=== PATIENT | female | born 1960 | race African-American/Black ===

== ENCOUNTER 2024-12-31 10:25 | Inpatient (IN) | payer MEDICARE, MEDICAID ==
[2024-12-31] VITALS (12 sets, daily range): BP systolic 96–117; BP diastolic 57–74; TEMP 98.1–99.3; O2SAT 95–96
[~2024-12-31] VITALS: Ht 160 cm; Wt 86.2 kg
[2024-12-31] MEDS ORDERED: OMEPRAZOLE (10:31)
[2024-12-31] MEDS ORDERED: [UNRECOGNIZED DRUG - REMARK] (10:31)
[2024-12-31] MEDS ORDERED: AMLODIPINE (10:31)
[2024-12-31 11:55] LABS: CREATININE 0.7 mg/dL (0.6-1.3); SODIUM SERUM 139 mmol/L (136-145); UREA NITROGEN, BLOOD 22 mg/dL (7-18)
[2024-12-31 12:01] LABS: ASPARTATE AMINOTRANSFERASE 16 U/L (15-37); TOTAL PROTEIN, SERUM 6.4 g/dL (6.4-8.2)
[2024-12-31 12:05] LABS: PLATELET COUNT (AUTO) 396 K/uL (179-408); RED CELL DISTRIBUTION WIDTH 15.9 % (12.3-17.7); WHITE BLOOD COUNT (AUTO) 16.4 K/uL (3.8-11.8)
[2024-12-31 12:07] LABS: RED BLOOD CELL COUNT(AUTO) 2.38 MIL/uL (3.63-4.92)
[2024-12-31] MEDS ORDERED: MORPHINE SULFATE 4 MG/1 ML DISP.SYRIN ONE (12:46)
[2024-12-31] MEDS ORDERED: ONDANSETRON 4 MG/2 ML VIAL ONE (12:46)
[2024-12-31] MEDS: ONDANSETRON 4 MG/2 ML VIAL IV ONE (13:00)
[2024-12-31] MEDS: MORPHINE SULFATE 4 MG/1 ML DISP.SYRIN IV ONE (13:01)
[2024-12-31] MEDS ORDERED: MAGNESIUM HYDROXIDE 30 ML LIQUID UDC PO PRN (13:45)
[2024-12-31] MEDS ORDERED: ONDANSETRON 4 MG/2 ML VIAL IV PRN (13:45)
[2024-12-31] MEDS ORDERED: REMEDY ESSENTIAL ZINC PASTE 113 GM TP PRN (13:45)
[2024-12-31 14:18] LABS: LYMPHOCYTES % (MANUAL) 17 % (20-40); MONOCYTES % (MANUAL) 6 % (2-10); NEUTROPHILS % (MANUAL) 77 % (42-75); PLATELET ESTIMATE ADEQUATE
[2024-12-31] MEDS ORDERED: FERR-68 PO (15:14)
[2024-12-31] MEDS ORDERED: ESCI10TA PO (15:14)
[2024-12-31] MEDS ORDERED: ATOR10TA PO (15:14)
[2024-12-31] MEDS ORDERED: DULO20CA PO (15:14)
[2024-12-31] MEDS ORDERED: OMEP40CA21 PO (15:14)
[2024-12-31] MEDS ORDERED: APIX2.5T PO (15:14)
[2024-12-31] MEDS ORDERED: BACL20TA PO (15:14)
[2024-12-31] MEDS ORDERED: AMLO-212 PO (15:14)
[2024-12-31] MEDS ORDERED: LINA290C PO (15:14)
[2024-12-31] MEDS ORDERED: OXYC-128 PO (15:14)
[2024-12-31] MEDS: OXYCODONE/APAP 5-325 MG TABLET PO PRN (18:54)
[2024-12-31] MEDS: IV NS 1000 ML 1,000 ML IV PRN (18:55)
[2024-12-31] MEDS: ATORVASTATIN 10 MG TABLET PO SCH (20:13)
[2024-12-31] MEDS: DULOXETINE 20 MG CAPSULE.DR PO SCH (20:14)
[2024-12-31] MEDS: ACETAMINOPHEN 325 MG TABLET PO PRN (20:14)
[2024-12-31 20:37] LABS: *BILIRUBIN,URIN NEGATIVE (NEGATIVE); *BLOOD, URINE NEGATIVE (NEGATIVE); *CLARITY,URINE CLEAR (CLEAR); *COLOR,URINE YELLOW (YELLOW); *KETONES,URINE NEGATIVE (NEGATIVE); *PROTEIN,URINE NEGATIVE (NEGATIVE); *UROBILINOGEN,URINE 0.2 E.U./dl (NORMAL); LEUKOCYTE ESTERASE ,URINE NEGATIVE (NEGATIVE); NITRITE, URINE NEGATIVE (NEGATIVE); UGLUCOSE NEGATIVE (NEGATIVE)
[2024-12-31] MEDS: BACLOFEN 20 MG TABLET PO PRN (22:55)
[2025-01-01] VITALS (18 sets, daily range): BP systolic 92–124; BP diastolic 57–82; TEMP 98–99.4; O2SAT 94–100
[2025-01-01 07:42] LABS: ASPARTATE AMINOTRANSFERASE 12.0 U/L (15-37); CREATININE 0.7 mg/dL (0.6-1.3); PLATELET COUNT (AUTO) 273 K/uL (179-408); RED BLOOD CELL COUNT(AUTO) 2.63 MIL/uL (3.63-4.92); RED CELL DISTRIBUTION WIDTH 18.9 % (12.3-17.7); SODIUM SERUM 140.0 mmol/L (136-145); TOTAL PROTEIN, SERUM 5.2 g/dL (6.4-8.2); UREA NITROGEN, BLOOD 18.0 mg/dL (7-18); WHITE BLOOD COUNT (AUTO) 15.6 K/uL (3.8-11.8)
[2025-01-01] MEDS: ESCITALOPRAM OXALATE 10 MG TABLET PO SCH (08:54)
[2025-01-01] MEDS: PANTOPRAZOLE SODIUM 40 MG VIAL IV SCH ×2 (08:55→20:48)
[2025-01-01] MEDS: AMLODIPINE 5 MG TABLET PO SCH (08:55)
[2025-01-01 10:41] LABS: *OCCULT BLOOD STOOL POSITIVE (NEGATIVE)
[2025-01-01 11:15] LABS: EOSINOPHILS % (MANUAL) 1 % (0-8); LYMPHOCYTES % (MANUAL) 15 % (20-40); METAMYELOCYTES % 3 % (0-1); MONOCYTES % (MANUAL) 8 % (2-10); MYELOCYTES % 1 % (0-0); NEUTROPHILS % (MANUAL) 72 % (42-75)
[2025-01-01 11:16] LABS: PLATELET ESTIMATE ADEQUATE
[2025-01-01] MEDS: [UNRECOGNIZED DRUG - OTHER] PO SCH (11:33)
[2025-01-01] MEDS: LINZESS 290 MCG PO SCH (11:33)
[2025-01-01] MEDS: IV LACTATED RINGERS SOLUTION 1,000 ML IV PRN (17:36)
[2025-01-02] VITALS (12 sets, daily range): BP systolic 101–121; BP diastolic 57–93; TEMP 98.2–99.4; O2SAT 92–100
[2025-01-02 07:04] LABS: CREATININE 0.7 mg/dL (0.6-1.3); SODIUM SERUM 142.0 mmol/L (136-145); UREA NITROGEN, BLOOD 18.0 mg/dL (7-18)
[2025-01-02 07:08] LABS: PLATELET COUNT (AUTO) 247 K/uL (179-408); RED CELL DISTRIBUTION WIDTH 19.0 % (12.3-17.7); WHITE BLOOD COUNT (AUTO) 15.4 K/uL (3.8-11.8)
[2025-01-02 07:58] LABS: RED BLOOD CELL COUNT(AUTO) 2.32 MIL/uL (3.63-4.92)
[2025-01-02 08:28] LABS: EOSINOPHILS % (MANUAL) 1 % (0-8); LYMPHOCYTES % (MANUAL) 15 % (20-40); MONOCYTES % (MANUAL) 6 % (2-10); NEUTROPHILS % (MANUAL) 78 % (42-75); PLATELET ESTIMATE ADEQUATE
[2025-01-02] MEDS ORDERED: PROPOFOL 200 MG/20 ML BOTTLE ONE ×3 (13:30)
[2025-01-02] MEDS ORDERED: LIDOCAINE-MPF 2% 5 ML VIAL ONE (13:30)
[2025-01-02] MEDS ORDERED: GLYCOPYRROLATE 0.2 MG/ML VIAL ONE (13:30)
[2025-01-02] MEDS ORDERED: EPINEPHRINE 1:10,000 1 MG/10 ML DISP.SYRIN ONE (14:03)
[2025-01-02] MEDS ORDERED: ONDANSETRON 4 MG/2 ML VIAL ONE (14:28)
[2025-01-02] MEDS: ONDANSETRON 4 MG/2 ML VIAL IV PRN (14:40)
[2025-01-02] MEDS: HYDROMORPHONE 1 MG/1 ML DISP.SYRIN IV PRN (16:22)
[2025-01-02] MEDS: VANCOMYCIN IV 1,250 MG in IV DEXTROSE 5% 250 ML IV SCH (18:34)
[2025-01-02] MEDS: METOCLOPRAMIDE HCL 10 MG/2 ML VIAL IV SCH (22:31)
[2025-01-03] VITALS (11 sets, daily range): BP systolic 100–116; BP diastolic 54–75; TEMP 98–98.8; O2SAT 94–98
[2025-01-03 07:13] LABS: PLATELET COUNT (AUTO) 256 K/uL (179-408); RED BLOOD CELL COUNT(AUTO) 2.98 MIL/uL (3.63-4.92); RED CELL DISTRIBUTION WIDTH 19.2 % (12.3-17.7); WHITE BLOOD COUNT (AUTO) 14.2 K/uL (3.8-11.8)
[2025-01-03 07:26] LABS: ASPARTATE AMINOTRANSFERASE 20.0 U/L (15-37); CREATININE 0.7 mg/dL (0.6-1.3); SODIUM SERUM 142.0 mmol/L (136-145); TOTAL PROTEIN, SERUM 5.5 g/dL (6.4-8.2); UREA NITROGEN, BLOOD 10.0 mg/dL (7-18)
[2025-01-03 09:07] LABS: BAND % (MANUAL) 2 % (0-10); LYMPHOCYTES % (MANUAL) 11 % (20-40); METAMYELOCYTES % 1 % (0-1); MONOCYTES % (MANUAL) 3 % (2-10); NEUTROPHILS % (MANUAL) 83 % (42-75); NUCLEATED RED BLOOD CELLS 2.0 /100WBC
[2025-01-03] MEDS: VANCOMYCIN IV 1,250 MG in IV DEXTROSE 5% 250 ML IV SCH (12:40)
[2025-01-04] MEDS: ONDANSETRON 4 MG/2 ML VIAL IV PRN (01:31)
[2025-01-04 06:52] VITALS: BP 112/71
[2025-01-04 07:26] LABS: PLATELET COUNT (AUTO) 292 K/uL (179-408); RED BLOOD CELL COUNT(AUTO) 2.96 MIL/uL (3.63-4.92); RED CELL DISTRIBUTION WIDTH 19.2 % (12.3-17.7); WHITE BLOOD COUNT (AUTO) 10.2 K/uL (3.8-11.8)
[2025-01-04 07:39] LABS: CREATININE 0.6 mg/dL (0.6-1.3); SODIUM SERUM 148.0 mmol/L (136-145); UREA NITROGEN, BLOOD 6.0 mg/dL (7-18)
[2025-01-04] MEDS: PANTOPRAZOLE SODIUM 40 MG TABLET.DR PO SCH (08:12)
[2025-01-04] MEDS ORDERED: PANT40TA49 PO (08:20)
[2025-01-04 12:00] VITALS: BP 113/69; TEMP 98.5; O2SAT 99
== END 2025-01-04 16:00 | disposition home health service (06) | DRG 378 ==
LOC: ER 10:25 → TELE3 16:17 → MEDSURG3 01-01 13:10
PROVIDERS: ADMIT Nurse Practitioner Acute Care; ATTEND Nurse Practitioner Acute Care
PROC: 30233N1 Transfusion of Nonautologous Red Blood Cells into Peripheral Vein, Percutaneous Approach (ICD-10-PCS; 2024-12-31)
PROC: 0W3P8ZZ Control Bleeding in Gastrointestinal Tract, Via Natural or Artificial Opening Endoscopic (ICD-10-PCS; principal; 2025-01-02 14:00)
PROC: 05HC33Z Insertion of Infusion Device into Left Basilic Vein, Percutaneous Approach (ICD-10-PCS; 2025-01-03)
PROC: 0DJ08ZZ Inspection of Upper Intestinal Tract, Via Natural or Artificial Opening Endoscopic (ICD-10-PCS; 2025-01-03)
DX: K92.2 Gastrointestinal hemorrhage, unspecified (principal); D62 Acute posthemorrhagic anemia; E44.0 Moderate protein-calorie malnutrition; N39.0 Urinary tract infection, site not specified; R55 Syncope and collapse; E66.9 Obesity, unspecified; Z68.33 Body mass index [BMI] 33.0-33.9, adult; Z96.643 Presence of artificial hip joint, bilateral; E78.5 Hyperlipidemia, unspecified; K58.9 Irritable bowel syndrome, unspecified; K21.9 Gastro-esophageal reflux disease without esophagitis; K44.9 Diaphragmatic hernia without obstruction or gangrene; E88.09 Other disorders of plasma-protein metabolism, not elsewhere classified; I10 Essential (primary) hypertension; E11.9 Type 2 diabetes mellitus without complications; Z88.0 Allergy status to penicillin; Z79.01 Long term (current) use of anticoagulants
CPT/HCPCS: 36415; 70030-TC; 71045; 83735; 84100; 84484; 85018; 85025; 85610; 85730; 86850; 86900; 86901; 86920; 87040; 93307; A4663; G0378; J0169; J1171; J1956; J2270; J2405; J2470; J2765; J3490; J7040; J7050; J7120; P9016